=== PATIENT | male | born 1980 | race Caucasian/White ===

== ENCOUNTER 2017-11-03 14:56 | Emergency (ER) | payer OTHER ==
[~2017-11-03 14:56] MED LIST: Cyclobenzaprine5 MG PO; LAMO100 PO; MELO7.5 PO; Naprosyn375 MG PO; Norco 5-325 Ta1 EACH PO; Prednisone20 MG PO; Prozac20 MG; QUET200 PO; SULI150 PO
== END 2017-11-03 15:16 | disposition left against medical advice (07) ==
LOC: ER 14:56
DX: Z53.21 Procedure and treatment not carried out due to patient leaving prior to being seen by health care provider (principal)

== ENCOUNTER 2017-11-26 11:17 | Day surgery (SDC) | payer OTHER ==
[~2017-11-26] VITALS: Ht 182.9 cm; Wt 92.5 kg
== END 2017-11-26 15:00 | disposition home or self-care (01) ==
LOC: ORSCMMR 11:17 → ORD 13:00 → ORSCMMR 14:14
DX: S62.141A Displaced fracture of body of hamate [unciform] bone, right wrist, initial encounter for closed fracture (principal); Z53.8 Procedure and treatment not carried out for other reasons
CPT/HCPCS: J0690; J2001; J7120

== ENCOUNTER → 2022-07-25 | Outpatient (CLI) | payer OTHER ==
[2022-07-25 16:00] LABS: BASOPHILS ABSOLUTE AUTO 0.06 K/mm3 (0.00-0.23); BASOPHILS PERCENT AUTO 1 % (0-2); EOSINOPHILS ABSOLUTE AUTO 0.19 K/mm3 (0.00-0.68); EOSINOPHILS PERCENT AUTO 3 % (0-6); Hematocrit 42.3 % (37.0-53.0); IMMATURE GRAN ABSOLUTE AUTO 0.01 K/mm3 (0.00-0.10); IMMATURE GRAN PERCENT AUTO 0 % (0-1); LYMPHOCYTES ABSOLUTE AUTO 1.37 K/mm3 (0.84-5.20); LYMPHOCYTES PERCENT AUTO 20 % (21-46); MONOCYTES ABSOLUTE AUTO 0.56 K/mm3 (0.16-1.47); MONOCYTES PERCENT AUTO 8 % (4-13); Mean Corpuscular HGB Conc 33.1 g/dL (31.5-36.5); Mean Corpuscular Volume 88 fL (80-100); Mean Platelet Volume 10.5 fL (9.1-12.4); NEUTROPHILS ABSOLUTE AUTO 4.68 K/mm3 (1.96-9.15); NEUTROPHILS PERCENT AUTO 68 % (41-73); Platelet Count 289 K/mm3 (150-400); RDW Coefficient Variation 12.8 % (11.7-14.2); RDW Standard Deviation 41.2 fL (35.1-46.3); Red Blood Cell Count 4.82 M/mm3 (4.30-5.90); White Blood Cell Count 6.87 K/mm3 (4.00-11.30)
[2022-07-25 16:07] LABS: Alanine Aminotransfer (ALT/SGP 34 U/L (12-78); Albumin, Blood 3.9 g/dL (3.4-5.0); Albumin/Globulin Ratio 1.2 (0.8-1.8); Alk Phos 34 U/L (50-136); Anion Gap 4 mmol/L (6-16); Aspartate Aminotrans (AST/SGOT 27 U/L (12-37); Bilirubin, Total 0.9 mg/dL (0.1-1.0); Blood Urea Nitrogen 16 mg/dL (8-24); Bun/Creatinine Ratio 17.7 (12.0-20.0); CHOL/HDL RATIO 2.6; CO2, Blood 29 mmol/L (21-32); Calcium, Blood 9.3 mg/dL (8.5-10.1); Chloride, Blood 107 mmol/L (98-108); Cholesterol 166 mg/dL (50-200); Free Thyroxine 0.85 ng/dL (0.70-1.60); Globulin, Blood 3.2 g/dL (2.2-4.0); Glomerular Filtration Rate 111 (60-); Glucose, Blood 108 mg/dL (70-99); HDL Cholesterol 64 mg/dL (>39); LDL/HDL RATIO 1.4; Low Density Lipoprotein Chol 92 mg/dL (0-110); Potassium, Blood 4.6 mmol/L (3.5-5.5); Sodium, Blood 140 mmol/L (136-145); Total Protein, Blood 7.1 g/dL (6.4-8.2); Triglycerides 51 mg/dL (30-160); Very Low Density Lipoprot Chol 10 mg/dL (6-32)
[2022-07-25 16:25] LABS: Thyroid Stimulating Hormone 0.857 uIU/mL (0.360-4.800)
[2022-07-27 08:07] LABS: HIV AB/P24 AG SCREEN Non Reactive (Non Reactive)
== END | disposition home or self-care (01) ==
LOC: LAB SHORT 14:23
PROVIDERS: Family Medicine
DX: Z13.1 Encounter for screening for diabetes mellitus (principal); Z11.3 Encounter for screening for infections with a predominantly sexual mode of transmission; Z11.4 Encounter for screening for human immunodeficiency virus [HIV]; Z11.59 Encounter for screening for other viral diseases; Z13.6 Encounter for screening for cardiovascular disorders; M62.81 Muscle weakness (generalized); E04.2 Nontoxic multinodular goiter; F17.200 Nicotine dependence, unspecified, uncomplicated; Z79.899 Other long term (current) drug therapy
CPT/HCPCS: 36415; 80053; 80061; 82607; 82746; 83036; 84439; 84443; 85025; 86803; 87389

== ENCOUNTER 2023-10-18 10:29 | Emergency (ER) | payer OTHER ==
[~2023-10-18] VITALS: Ht 190.5 cm; Wt 91.6 kg
[2023-10-18 10:33] VITALS: BP 135/88
[2023-10-18] MEDS ORDERED: HYDROcodone 5-APAP 325 TAB PO ONE (11:30)
[2023-10-18] MEDS ORDERED: MUPIROCIN1 G1 TOP (11:34)
[2023-10-18] MEDS ORDERED: HYDR1TAB94 PO (11:34)
== END 2023-10-18 11:55 | disposition home or self-care (01) ==
LOC: ER 10:29
DX: T20.10XA Burn of first degree of head, face, and neck, unspecified site, initial encounter (principal); T22.111A Burn of first degree of right forearm, initial encounter; T21.11XA Burn of first degree of chest wall, initial encounter; X12.XXXA Contact with other hot fluids, initial encounter; Z87.891 Personal history of nicotine dependence
CPT/HCPCS: A9270